=== PATIENT | female | born 1945 | race Caucasian/White ===

== ENCOUNTER 2016-10-11 13:30 | Emergency (ER) | payer MEDICARE ==
[2016-10-11] MEDS ORDERED: OPTIRAY 350 100 ML VIAL EDI IV ONE (13:31)
[2016-10-11] MEDS ORDERED: MORPHINE 4 MG/ML SYR ONE (14:06)
[2016-10-11] MEDS ORDERED: CEFTRIAXONE 1 GM VIAL ONE (15:47)
[2016-10-11] MEDS ORDERED: SODIUM CHLORIDE 0.9% 100 ML IV ONE (15:47)
[2016-10-11] MEDS ORDERED: DILAUDID 1 MG/ML AMP ONE (16:05)
== END 2016-10-11 17:58 | disposition home or self-care (01) ==
LOC: ER 13:30
DX: N39.0 Urinary tract infection, site not specified (principal); N12 Tubulo-interstitial nephritis, not specified as acute or chronic; I10 Essential (primary) hypertension; E11.9 Type 2 diabetes mellitus without complications; G35 Multiple sclerosis; Z79.84 Long term (current) use of oral hypoglycemic drugs; Z79.899 Other long term (current) drug therapy
CPT/HCPCS: 36415; 71260; 74022; 80053; 81001; 83690; 85025; 85379; 87077; 87088; 87186; 96365; 96375; 99284; J0696; J1170; J2270; Q9967